=== PATIENT | male | born 1970 | race Asian ===

== ENCOUNTER 2016-09-19 05:50 | Inpatient (IN) | payer OTHER ==
[2016-09-19] MEDS ORDERED: cefOXitin SODIUM 1 GM in D5W 50 ML IV ONE (06:00)
[2016-09-19] MEDS ORDERED: LR 1,000 ML IV ONE (06:45)
[2016-09-19] MEDS ORDERED: LIDOCAINE 1% 5 ML SDV ID PRN (06:45)
[2016-09-19] MEDS ORDERED: BUPIVACAINE 0.5% 30 ML SDV ONE (06:55)
[2016-09-19] MEDS ORDERED: HEPARIN 1000 UNIT/1 ML MDV ONE (06:56)
[2016-09-19] MEDS ORDERED: ceFAZolin 1 GM VIAL ONE (06:56)
[2016-09-19] MEDS ORDERED: ceFAZolin 1 GM/5 ML SYR ONE (07:10)
[2016-09-19] MEDS ORDERED: PROPOFOL 200 MG/20 ML VIAL ONE (07:24)
[2016-09-19] MEDS ORDERED: DEXAMETHASONE 4 MG/ML VIAL ONE ×2 (07:24)
[2016-09-19] MEDS ORDERED: ROCURONIUM 100 MG/10 ML VIAL ONE (07:24)
[2016-09-19] MEDS ORDERED: LIDOCAINE 2% 100 MG/5 ML SYR ONE (07:25)
[2016-09-19] MEDS ORDERED: MIDAZOLAM 2 MG/2 ML VIAL ONE (07:26)
[2016-09-19] MEDS ORDERED: KETOROLAC 30 MG/1 ML SDV ONE (07:36)
--- NOTE | 2016-09-19 09:26 | POSTOPPROG ---
Post Op Note Date of Operation: 09/19/16 Surgeon: Tree Rudolph Vehicle Modification Technician: Paulina Lucio PA-C, KINGS Shook MS, Mihaela Whitmore MS Anesthesiologist: lEiot Silver MD Anesthesia: GET(General Endotracheal) Pre-op Diagnosis: paraesophageal hiatal hernia Post-op Diagnosis: same Indication: intermittent epigastric and chest pain with large hernia Procedure: Lap maria esther fundoplication with hiatal hernia repair Findings: large hiatal hernia with half of stomach in chest Inf/Abcess present in the surg proc area at time of surgery?: No EBL: Minimal Complications: none Drains: Other (none)
[2016-09-19] MEDS ORDERED: HYDROmorphONE/DILAUDID 6 MG/30 ML PCA IV PRN (09:29)
[2016-09-19] MEDS ORDERED: HYDROCODONE/APAP 5/325 TAB PO PRN (09:29)
[2016-09-19] MEDS ORDERED: NALOXONE HCL 0.4 MG/ML INJ IVP PRN (09:29)
[2016-09-19] MEDS ORDERED: ONDANSETRON 4 MG/2 ML VIAL IVP PRN (09:29)
[2016-09-19] MEDS ORDERED: NS W/ 20 KCl/L 1,000 ML IV SCH (09:30)
[2016-09-19] MEDS ORDERED: fentaNYL 100 MCG/2 ML INJ ONE (10:15)
[2016-09-19] MEDS ORDERED: HYDROmorphONE/DILAUDID 1 MG/ML SYR ONE (10:49)
[2016-09-19] MEDS: HYDROmorphONE/DILAUDID 1 MG/ML SYR IVP PRN ×2 (15:52→19:15)
--- NOTE | 2016-09-19 19:02 | SOAPPROG ---
SOAP Progress Note Assessment/Plan: Assessment: POSTOP DOING WELL /WOUNDS OKAY / TOLERATING CLEARS Plan: POSSIBLY HOME IN THE A.M. 09/19/16 19:01 Objective: Vital Signs Temp Pulse Resp BP Pulse Ox 36.6 C 83 12 118/72 97 09/19/16 15:19 09/19/16 15:19 09/19/16 15:19 09/19/16 15:19 09/19/16 15:19 09/18/16 09/19/16 09/20/16 05:59 05:59 05:59 Intake Total 2870 Output Total 705 Balance 2165 ICD10 Worksheet Patient Problems: Problems Problem Status Onset Paraesophageal hernia Acute - ICD10 Problem Qualifiers (1) Paraesophageal hernia
[2016-09-19] MEDS: ONDANSETRON 4 MG/2 ML VIAL IVP PRN (22:19)
[2016-09-20 05:13] LABS: HEMATOCRIT 41.7 % (40.0-51.0); HEMOGLOBIN 14.2 g/dL (13.7-17.5)
[2016-09-20 05:35] LABS: ANION GAP 6 mEq/L (8-16); CALCIUM 8.4 mg/dL (8.5-10.4); CARBON DIOXIDE 17 mEq/l (22-31); CHLORIDE 111 mEq/L (97-110); CREATININE 0.8 mg/dL (0.7-1.3); GLOMERULAR FILTRATION RATE > 60; GLUCOSE 98 mg/dL (70-100); POTASSIUM 5.3 mEq/L (3.5-5.2); SODIUM 134 mEq/L (134-144); SPECIMEN HEMOLYSIS 153
[2016-09-20] MEDS: ONDANSETRON 4 MG/2 ML VIAL IVP PRN (08:43)
[2016-09-20] MEDS: NS 1,000 ML IV SCH ×2 (08:43→17:31)
[2016-09-20] MEDS: PANTOPRAZOLE SODIUM 40 MG TAB PO SCH (08:44)
--- NOTE | 2016-09-20 09:00 | GOP ---
[f rep st] OPERATIVE REPORT DATE OF OPERATION: 09/19/2016 SURGEON: Tree Rudolph MD HUMAN RESOURCES PSYCHOLOGIST: LUIS ANTONIO Marcelino. ANESTHESIOLOGIST: Dr. Silver. PREOPERATIVE DIAGNOSIS: Hiatal hernia and gastroesophageal reflux. POSTOPERATIVE DIAGNOSIS: Hiatal hernia and gastroesophageal reflux. PROCEDURE PERFORMED: Laparoscopic paraesophageal hiatal hernia repair and Cliff fundoplication. FINDINGS: The patient was found to have 80% of his stomach up in his chest with a large paraesophag eal hernia. ESTIMATED BLOOD LOSS: Negligible. DESCRIPTION OF PROCEDURE: The patient was taken to the operating room, where he received satisfacto ry general endotracheal anesthesia by Dr. Silver. He was placed in supine position in low stirrup s, prepped and draped in the usual sterile fashion. A short incision was made in the supraumbilical midline. A Veress needle was inserted. Pneumoperitoneum was established. Trocars were introduced . Laparoscope introduced. Good visualization was obtained. 4 other trocars were placed in the upp er abdomen under direct vision. The left lateral segment of the liver was elevated up with a liver retractor. The hiatus was well exposed. The stomach was easily reduced back down in the abdomen al though 80% of the stomach was up in the chest. The hernia sac was dissected free from both crura, a nd the esophagus was mobilized well up into the chest, so that it easily reached down into the abdom en without tension. The jodie was then approximated with interrupted 0 Ethibond sutures. This was d one over a 52 bougie dilator approximating and closing the hiatal defect. Cliff wrap was then crea suhail with the fundus of the stomach wrapping around the distal esophagus. This was secured in place with 3 sutures securing the anterior wall of the stomach to the anterior wall of the esophagus to th e fundoplication wrap. Hemostasis was assured. Trocars removed under direct vision. Trocar sites were closed with 4-0 Monocryl subcuticular stitch for the skin. All layers were infiltrated with Ma rcaine. COMPLICATIONS: None. Taken to recovery room in good condition. /[id number]/MODL
--- NOTE | 2016-09-20 11:10 | SOAPPROG ---
SOAP Progress Note Assessment/Plan: Assessment/Plan: 46 Y M s/p lap repair of large hiatal hernia and maria esther, POD#1. If nausea improves, then advance to dysphagia diet and transition to PO pain meds. Dispo: possibly this afternoon, but much more likely in am. S: Nausea this am. Suspect related to SORT LINE. Zofran helped last night. +shoulder pain. O: alert, nad mmm ctab rrr abd soft, inc cdi, +BS 09/20/16 11:08 Objective: Vital Signs Temp Pulse Resp BP Pulse Ox 36.8 C 81 18 133/88 H 93 09/20/16 08:00 09/20/16 08:00 09/20/16 08:00 09/20/16 08:00 09/20/16 08:00 Laboratory Results 09/20/16 05:03 09/20/16 05:03 09/19/16 09/20/16 09/21/16 05:59 05:59 05:59 Intake Total 4420 Output Total 1305 500 Balance 3115 -500 ICD10 Worksheet Patient Problems: Problems Problem Status Onset Paraesophageal hernia Acute
[2016-09-20] MEDS ORDERED: KETOROLAC 30 MG/1 ML SDV IVP ONE (11:30)
[2016-09-20] MEDS: KETOROLAC 15 MG/1 ML SDV IVP SCH ×2 (17:30→23:58)
[2016-09-21] MEDS: KETOROLAC 15 MG/1 ML SDV IVP SCH (05:55)
[2016-09-21 07:51] VITALS: PULSE 76; RESP 14; TEMP 98; O2SAT 94
[2016-09-21] MEDS: PANTOPRAZOLE SODIUM 40 MG TAB PO SCH (08:45)
[2016-09-21 11:59] VITALS: BP 156/103
--- NOTE | 2016-09-21 12:33 | SOAPPROG ---
SOAP Progress Note Assessment/Plan: Assessment: POSTOP DOING WELL /WOUNDS OKAY / TOLERATING CLEARS Plan: POSSIBLY HOME IN THE A.M. 09/19/16 19:01 Objective: Vital Signs Temp Pulse Resp BP Pulse Ox 36.6 C 76 14 156/103 H 94 09/21/16 07:47 09/21/16 07:47 09/21/16 07:47 09/21/16 11:57 09/21/16 07:47 Laboratory Results 09/20/16 05:03 09/20/16 05:03 09/20/16 09/21/16 09/22/16 05:59 05:59 05:59 Intake Total 4420 1905 Output Total 1305 1350 Balance 3115 555 ICD10 Worksheet Patient Problems: Problems Problem Status Onset Paraesophageal hernia Acute - ICD10 Problem Qualifiers (1) Paraesophageal hernia
--- NOTE | 2016-09-21 12:34 | SOAPPROG ---
SOAP Progress Note Assessment/Plan: Assessment: POSTOP DOING WELL /WOUNDS OKAY / TOLERATING CLEARS Plan: POSSIBLY HOME IN THE A.M. 09/19/16 19:01 09/21/16 12:33 DOING WELL / EATING WELL /READY FOR HOME Objective: Vital Signs Temp Pulse Resp BP Pulse Ox 36.6 C 76 14 156/103 H 94 09/21/16 07:47 09/21/16 07:47 09/21/16 07:47 09/21/16 11:57 09/21/16 07:47 Laboratory Results 09/20/16 05:03 09/20/16 05:03 09/20/16 09/21/16 09/22/16 05:59 05:59 05:59 Intake Total 4420 1905 Output Total 1305 1350 Balance 3115 555 ICD10 Worksheet Patient Problems: Problems Problem Status Onset Paraesophageal hernia Acute - ICD10 Problem Qualifiers (1) Paraesophageal hernia
== END 2016-09-21 14:32 | disposition home or self-care (01) | DRG 328 ==
LOC: OBSVTOIN 05:50 → F3E 05:50
PROVIDERS: ADMIT Surgery; ATTEND Surgery
PROC: 0DV44CZ Restriction of Esophagogastric Junction with Extraluminal Device, Percutaneous Endoscopic Approach (ICD-10-PCS; principal; 2016-09-19 07:30)
DX: K44.9 Diaphragmatic hernia without obstruction or gangrene (principal)
CPT/HCPCS: J0690; J0697; J1100; J1170; J1885; J2001; J2250; J2405; J2704; J3010